=== PATIENT | female | born 1940 | race Caucasian/White ===

== ENCOUNTER 2017-08-18 08:06 | Outpatient (CLI) | payer MEDICARE ==
--- NOTE | 2017-08-18 08:55 | RAD ---
RIGHT HAND 3 VIEWS: Date: 08/18/17 HISTORY: Arthritis. COMPARISON: None. FINDINGS: Mild narrowing of radiocarpal joint. Severe degenerative disease at thumb carpometacarpal joint. Mild interphalangeal joint space narrowing of the thumb, as well as distal and proximal interphalangeal j oint spaces of nearly all the fingers. Mild negative ulnar variance. IMPRESSION: Moderate osteoarthritic disease. POS: C
--- NOTE | 2017-08-18 08:57 | RAD ---
LEFT HAND 3 VIEWS: Date: 08/18/17 HISTORY: Arthritis. COMPARISON: None. FINDINGS: Mild to moderate interphalangeal joint space narrowing of the thumb. Subtle widening of scapholunate interval. Mild elongation of ulnar styloid. Mild proximal and distal interphalangeal joint space narr owing throughout all digits. IMPRESSION: 1. Mild osteoarthrosis of the hand. 2. Mild widening of scapholunate interval suggesting ligamentous injury. No proximal migration of th e capitate is yet seen. POS: C
[2017-08-18 08:58] LABS: ALT (SGPT) 9 U/L (8-55); AST (SGOT) 11 U/L (5-34); Albumin 3.8 g/dL (3.4-4.8); Alkaline Phosphatase 89 U/L (40-150); Anion Gap 16 mmol/L (10-20); BUN (Urea Nitrogen) 18 mg/dL (9.8-20.1); Bilirubin, Direct 0.1 mg/dL (0.1-0.3); Bilirubin, Total 0.2 mg/dL (0.2-1.2); Calc. Creatinine Clearance 0 mL/min (70-130); Calcium 9.3 mg/dL (7.8-10.44); Carbon Dioxide 29 mmol/L (23-31); Cardiac Risk 3.3 (Less than 4.5); Chloride 100 mmol/L (98-107); Cholesterol 180 mg/dl (< 200 Desired); Estimated GFR-MDRD 76; Glucose 111 mg/dL (83-110); HDL Cholesterol 54 mg/dL (>60 Neg Risk); LDL Cholesterol, Calculated 113 mg/dL; Protein, Total 8.4 g/dL (6.0-8.3); Sodium 141 mmol/L (136-145); Triglycerides 63 mg/dL (Less than 150); Uric Acid 4.6 mg/dL (2.6-6.0)
[2017-08-18 09:28] LABS: #Neutrophils 4.3 thou/uL (1.40-6.50); %Basophils 1.4 % (0.0-1.0); %Eosinophils 3.1 % (0.0-10.0); %Lymphocytes 23.8 % (21.0-51.0); %Monocytes 8.4 % (0.0-10.0); %Neutrophils 63.3 % (42.0-75.0); Hemoglobin 13.6 g/dL (12.0-16.0); Mean Corpuscular HGB CONC 31.3 g/dL (32.0-36.0); Mean Corpuscular Hemoglobin 28.5 pg (27.0-31.0); Mean Corpuscular Volume 90.9 fL (81.0-99.0); Mean Platelet Volume 7.3 fL (7.4-10.4); Platelet Count 436 thou/uL (130-400); RBC Distribution Width 12.9 % (11.5-14.5); Red Blood Cell (RBC) Count 4.76 mill/uL (4.20-5.40); White Blood Cell (WBC) Count 6.8 thou/uL (4.8-10.8)
[2017-08-18 09:29] LABS: #Basophils 0.1 thou/uL (0.0-0.2); #Eosinphils 0.2 thou/uL (0.0-0.7); #Lymphocytes 1.6 thou/uL (1.20-3.40); #Monocytes 0.6 thou/uL (0.11-0.59)
[2017-08-18 17:11] LABS: CRP (Inflammatory) 2.14 mg/dL (= or < 0.5)
[2017-08-20 14:00] LABS: EliA RAS New Method **** NEW METHOD ****
== END 2017-08-18 08:07 | disposition home or self-care (01) ==
LOC: MADLABBHPM 08:06
PROVIDERS: ATTEND Family Medicine
DX: E03.9 Hypothyroidism, unspecified (principal); E78.00 Pure hypercholesterolemia, unspecified; M19.90 Unspecified osteoarthritis, unspecified site; I10 Essential (primary) hypertension
CPT/HCPCS: 36415; 80048; 80061; 80076; 83520; 84443; 84550; 85025; 85652; 86140; 86200

== ENCOUNTER 2021-01-01 09:52 | Outpatient (CLI) | payer MEDICARE ==
[2021-01-01 10:47] LABS: ALT (SGPT) 17 U/L (8-55); AST (SGOT) 17 U/L (5-34); Albumin 4.1 g/dL (3.4-4.8); Alkaline Phosphatase 80 U/L (40-110); Anion Gap 14 mmol/L (10-20); BUN (Urea Nitrogen) 14 mg/dL (9.8-20.1); Bilirubin, Total 0.4 mg/dL (0.2-1.2); Calc. Creatinine Clearance 0 mL/min (70-130); Calcium 9.3 mg/dL (7.8-10.44); Carbon Dioxide 35 mmol/L (23-31); Chloride 97 mmol/L (98-107); Cholesterol 209 mg/dl (< 200 Desired); Globulin 3.1 g/dL (2.4-3.5); Glucose 93 mg/dL (83-110); HDL Cholesterol 69 mg/dL (>60 Neg Risk); LDL Cholesterol, Calculated 128 mg/dL; Potassium 4.2 mmol/L (3.5-5.1); Protein, Total 7.2 g/dL (5.8-8.1); Sodium 142 mmol/L (136-145); Triglycerides 59 mg/dL (Less than 150)
[2021-01-01 11:37] LABS: #Eosinphils 0.1 thou/uL (0.0-0.7); #Lymphocytes 1.2 thou/uL (1.20-3.40); #Monocytes 0.5 thou/uL (0.11-0.59); %Basophils 1.2 % (0.0-1.0); %Eosinophils 2.8 % (0.0-10.0); %Lymphocytes 31.9 % (21.0-51.0); %Neutrophils 52.2 % (42.0-75.0); Hemoglobin 15.2 g/dL (12.0-16.0); Mean Corpuscular Hemoglobin 29.6 pg (27.0-31.0); Mean Corpuscular Volume 98.8 fL (78.0-98.0); Mean Platelet Volume 8.1 fL (7.4-10.4); Platelet Count 232 thou/uL (130-400); RBC Distribution Width 12.9 % (11.5-14.5); Red Blood Cell (RBC) Count 5.12 mill/uL (4.20-5.40); White Blood Cell (WBC) Count 3.7 thou/uL (4.8-10.8)
[2021-01-01 17:12] LABS: Hemoglobin A1c 5.5 % (4.0-6.0)
== END 2021-01-01 09:53 | disposition home or self-care (01) ==
LOC: MADLAB 09:52
PROVIDERS: ATTEND Family Medicine
DX: E03.9 Hypothyroidism, unspecified (principal); J44.9 Chronic obstructive pulmonary disease, unspecified; E78.00 Pure hypercholesterolemia, unspecified; I10 Essential (primary) hypertension; Z79.52 Long term (current) use of systemic steroids
CPT/HCPCS: 80053; 80061; 83036; 84443; 85025

== ENCOUNTER 2021-08-18 12:49 | Outpatient (CLI) | payer MEDICARE ==
[2021-08-18 13:31] LABS: #Eosinphils 0.1 thou/uL (0.0-0.7); #Lymphocytes 1.4 thou/uL (1.20-3.40); #Monocytes 0.4 thou/uL (0.11-0.59); #Neutrophils 2.1 thou/uL (1.40-6.50); %Basophils 0.8 % (0.0-1.0); %Eosinophils 2.8 % (0.0-10.0); %Lymphocytes 33.9 % (21.0-51.0); %Monocytes 10.5 % (0.0-10.0); Hemoglobin 14.9 g/dL (12.0-16.0); Mean Corpuscular HGB CONC 30.1 g/dL (32.0-36.0); Mean Corpuscular Hemoglobin 29.6 pg (27.0-31.0); Mean Corpuscular Volume 98.5 fL (78.0-98.0); Mean Platelet Volume 7.2 fL (7.4-10.4); Platelet Count 218 thou/uL (130-400); RBC Distribution Width 13.9 % (11.5-14.5); Red Blood Cell (RBC) Count 5.02 mill/uL (4.20-5.40); White Blood Cell (WBC) Count 4.1 thou/uL (4.8-10.8)
[2021-08-18 13:41] LABS: ALT (SGPT) 16 U/L (8-55); AST (SGOT) 17 U/L (5-34); Albumin 4.1 g/dL (3.4-4.8); Alkaline Phosphatase 63 U/L (40-110); Anion Gap 16 mmol/L (10-20); BUN (Urea Nitrogen) 17 mg/dL (9.8-20.1); Bilirubin, Total 0.3 mg/dL (0.2-1.2); Calc. Creatinine Clearance 0 mL/min (70-130); Calcium 9.3 mg/dL (7.8-10.44); Carbon Dioxide 35 mmol/L (23-31); Chloride 101 mmol/L (98-107); Cholesterol 211 mg/dl (< 200 Desired); Globulin 3.1 g/dL (2.4-3.5); Glucose 89 mg/dL (83-110); HDL Cholesterol 70 mg/dL (>60 Neg Risk); LDL Cholesterol, Calculated 125 mg/dL; Potassium 4.6 mmol/L (3.5-5.1); Protein, Total 7.2 g/dL (5.8-8.1); Sodium 147 mmol/L (136-145); Triglycerides 81 mg/dL (Less than 150)
== END 2021-08-18 12:50 | disposition home or self-care (01) ==
LOC: MADLAB 12:49
PROVIDERS: ATTEND Family Medicine
DX: E78.00 Pure hypercholesterolemia, unspecified (principal); J96.11 Chronic respiratory failure with hypoxia
CPT/HCPCS: 80053; 80061; 85025